=== PATIENT | male | born 1950 | race Two or more races ===

== ENCOUNTER 2023-02-28 11:09 | Inpatient (IN) | payer MEDICARE, MEDICAID ==
[~2023-02-28] VITALS: Ht 172.7 cm; Wt 95.6 kg
[~2023-02-28 11:09] MED LIST: ALBU0.084 IN; ALBUAER3 IN; AMLO1TAB22 PO; CHOL500046 PO; CLON-853 PO; FINA5TAB4 PO; FLUT110A IN; PANC3600 OR; PERCOT PO; PREG75CA PO; TEST1.62 TD; TIZA4CAP PO
[2023-02-28] MEDS ORDERED: SODIUM CHLORIDE 0.9% 1,000 ML IV ONE (11:30)
[2023-02-28] MEDS ORDERED: ONDANSETRON HCL 4 MG/2 ML VIAL IV ONE (11:30)
[2023-02-28] MEDS ORDERED: MORPHINE SULFATE 4 MG/ML SYR/VIAL IV ONE ×2 (11:30→17:00)
[2023-02-28 11:56] LABS: Basophils # (auto) 0.2 10 ^3/uL (0-0.2); Eosinophils # (auto) 0.3 10 ^3/uL (0-0.8); Eosinophils % (auto) 1.7 % (0.0-7.0); Hematocrit 32.3 % (41.0-53.0); Hemoglobin 10.8 g/dL (13.5-17.5); Lymphocytes # (auto) 1.5 10 ^3/uL (0.4-5.4); Mean Corpuscular Hemoglobin 27.1 pg (28.0-32.0); Mean Corpuscular Hgb Conc. 33.5 g/dL (32.0-36.0); Monocytes # (auto) 1.4 10 ^3/uL (0-1.3); Monocytes % (auto) 9.5 % (0.0-12.0); Neutrophils # (auto) 11.4 10 ^3/uL (1.6-8.6); Neutrophils % (auto) 77.8 % (37.0-80.0); Red Blood Cells 3.98 10^6/uL (4.5-5.90); White Blood Cell 14.7 10^3/uL (4.4-10.8)
[2023-02-28 12:12] LABS: INR 1.04 (0.9-1.15); Partial Thromboplastin Time 25.6 SEC (24.5-34.5); Prothrombin Time 10.9 sec (9.3-11.8)
[2023-02-28 12:18] LABS: Albumin 2.9 g/dL (3.4-5.0); Calcium 8.3 mg/dL (8.5-10.1)
[2023-02-28 12:22] LABS: BUN/Creatinine Ratio 19.3 (10.0-20.0); Bilirubin, Total 0.7 mg/dL (0.2-1.0)
[2023-02-28 12:40] VITALS: PULSE 91; RESP 10; O2SAT 94
[2023-02-28 13:45] LABS: Urine Bacteria NONE SEEN /hpf (None Seen); Urine Blood Negative /uL (Negative); Urine Clarity Clear (Clear); Urine Color Yellow (Yellow); Urine Protein, UAD TRACE (Negative); Urine Specific Gravity 1.021 (1.001-1.035); Urine Urobilinogen Normal (Negative); Urine WBC 11 /hpf (0 - 3)
[2023-02-28] MEDS ORDERED: CIPR-173 PO (13:50)
[2023-02-28] MEDS ORDERED: cefTRIAXone 1GM/50ML D5W 50 ML IV ONE (14:00)
[2023-02-28] MEDS ORDERED: ONDANSETRON HCL 4 MG/2 ML VIAL IM ONE (17:00)
[2023-02-28] MEDS ORDERED: ONDANSETRON HCL 4 MG/2 ML VIAL IV PRN (17:15)
[2023-02-28] MEDS ORDERED: DOCUSATE SOD 100 MG CAP PO PRN (17:15)
[2023-02-28] MEDS ORDERED: AMPICILLIN & SULBACTAM SODIUM 3 GM in SODIUM CHL 0.9% 100 ML IV SCH (17:15)
[2023-02-28 17:52] VITALS: BP 111/63; PULSE 86; RESP 18; TEMP 98.8; O2SAT 93
[2023-02-28] MEDS: SODIUM CHLORIDE 0.9% 1,000 ML IV SCH (18:33)
[2023-02-28 20:00] VITALS: PULSE 96; O2SAT 93
[2023-02-28] MEDS: MORPHINE SULFATE INJ 2 MG/ml SYRG IV PRN (20:34)
[2023-02-28] MEDS ORDERED: PANCREATIC ENZYMES 4200 UNIT CAP PO SCH (22:00)
[2023-02-28] MEDS ORDERED: CLONAZEPAM 1 MG PO SCH (22:00)
[2023-02-28] MEDS: clonazePAM 0.5 MG TAB PO SCH (22:31)
[2023-02-28] MEDS: PREGABALIN CAPSULE 75 MG CAP PO SCH (22:31)
[2023-02-28] MEDS: ceFAZolin 1GM/50ML 50 ML IV SCH (22:31)
[2023-02-28 23:37] VITALS: BP 148/78; PULSE 95; RESP 20; TEMP 98.4; O2SAT 95
[2023-03-01] VITALS (8 sets, daily range): BP systolic 110–135; BP diastolic 64–69; PULSE 80–91; RESP 17–20; TEMP 97.7–98.7; O2SAT 92–97
[2023-03-01] MEDS: SODIUM CHLORIDE 0.9% 1,000 ML IV SCH ×2 (01:42→18:15)
[2023-03-01] MEDS: MORPHINE SULFATE INJ 2 MG/ml SYRG IV PRN (01:47)
[2023-03-01 06:12] LABS: Basophils # (auto) 0.1 10 ^3/uL (0-0.2); Basophils % (auto) 0.9 % (0.0-2.0); Eosinophils # (auto) 0.3 10 ^3/uL (0-0.8); Eosinophils % (auto) 2.5 % (0.0-7.0); Hematocrit 29.6 % (41.0-53.0); Lymphocytes # (auto) 1.9 10 ^3/uL (0.4-5.4); Lymphocytes % (auto) 14.2 % (10.0-50.0); Mean Corpuscular Hemoglobin 27.5 pg (28.0-32.0); Mean Corpuscular Hgb Conc. 33.7 g/dL (32.0-36.0); Mean Corpuscular Volume 81.5 fL (80.0-100.0); Monocytes # (auto) 1.4 10 ^3/uL (0-1.3); Monocytes % (auto) 10.3 % (0.0-12.0); Neutrophils # (auto) 9.6 10 ^3/uL (1.6-8.6); Neutrophils % (auto) 72.1 % (37.0-80.0); Nucleated Red Blood Cells % 0.1 %; Red Blood Cells 3.63 10^6/uL (4.5-5.90); Red Cell Distribution Width 14.1 % (11.8-14.3); White Blood Cell 13.3 10^3/uL (4.4-10.8)
[2023-03-01] MEDS: PREGABALIN CAPSULE 75 MG CAP PO SCH ×3 (06:27→21:36)
[2023-03-01] MEDS: ceFAZolin 1GM/50ML 50 ML IV SCH ×3 (06:27→21:36)
[2023-03-01 06:41] LABS: Potassium 3.7 mmol/L (3.5-5.1)
[2023-03-01 06:51] LABS: Albumin 2.5 g/dL (3.4-5.0); BUN/Creatinine Ratio 16.3 (10.0-20.0); Bilirubin, Total 0.6 mg/dL (0.2-1.0); Total Protein 6.2 g/dL (6.4-8.2)
[2023-03-01] MEDS: FINASTERIDE 5 MG TAB PO SCH (09:35)
[2023-03-01] MEDS: clonazePAM 0.5 MG TAB PO SCH ×2 (09:35→21:36)
[2023-03-01] MEDS: amLODIPine BESYLATE 5 MG TAB PO SCH (09:35)
[2023-03-01] MEDS: PANCREATIC ENZYMES 4200 UNIT CAP PO SCH ×3 (09:36→20:01)
[2023-03-01] MEDS: oxyCODONE ER 20 MG TAB PO SCH ×2 (09:50→21:38)
[2023-03-01] MEDS: OXYCODONE W/ ACETAMINOPHEN 5/325MG TABLET PO PRN (15:37)
[2023-03-02] VITALS (12 sets, daily range): BP systolic 101–129; BP diastolic 61–71; PULSE 65–96; RESP 16–20; TEMP 97.9–99; O2SAT 92–100
[2023-03-02] MEDS: OXYCODONE W/ ACETAMINOPHEN 5/325MG TABLET PO PRN ×4 (00:19→20:28)
[2023-03-02] MEDS: SODIUM CHLORIDE 0.9% 1,000 ML IV SCH ×2 (02:35→19:15)
[2023-03-02] MEDS: PREGABALIN CAPSULE 75 MG CAP PO SCH ×3 (07:08→21:46)
[2023-03-02] MEDS: PANCREATIC ENZYMES 4200 UNIT CAP PO SCH ×3 (08:08→18:21)
[2023-03-02] MEDS: ceFAZolin 1GM/50ML 50 ML IV SCH ×3 (08:11→21:46)
[2023-03-02] MEDS: oxyCODONE ER 20 MG TAB PO SCH ×2 (10:29→23:05)
[2023-03-02] MEDS: clonazePAM 0.5 MG TAB PO SCH ×2 (10:30→21:47)
[2023-03-02] MEDS: amLODIPine BESYLATE 5 MG TAB PO SCH (10:30)
[2023-03-02] MEDS: FINASTERIDE 5 MG TAB PO SCH (10:30)
[2023-03-02] MEDS: levoFLOXacin 500MG 100 ML IV SCH (10:31)
[2023-03-02] MEDS: ALBUTEROL SULF 2.5 MG/0.5ML(0.5%) NEB SOLN NEB PRN (23:45)
[2023-03-03] VITALS (11 sets, daily range): BP systolic 101–128; BP diastolic 64–75; PULSE 79–96; RESP 16–22; TEMP 98–98.3; O2SAT 91–100
[2023-03-03] MEDS: OXYCODONE W/ ACETAMINOPHEN 5/325MG TABLET PO PRN ×2 (03:44→17:30)
[2023-03-03] MEDS: SODIUM CHLORIDE 0.9% 1,000 ML IV SCH ×3 (04:22→20:15)
[2023-03-03] MEDS: ceFAZolin 1GM/50ML 50 ML IV SCH (05:16)
[2023-03-03] MEDS: PREGABALIN CAPSULE 75 MG CAP PO SCH ×3 (05:17→21:31)
[2023-03-03] MEDS: PANCREATIC ENZYMES 4200 UNIT CAP PO SCH ×3 (08:00→17:31)
[2023-03-03] MEDS: levoFLOXacin 500MG 100 ML IV SCH (09:29)
[2023-03-03] MEDS: clonazePAM 0.5 MG TAB PO SCH ×2 (09:30→21:31)
[2023-03-03] MEDS: amLODIPine BESYLATE 5 MG TAB PO SCH (09:33)
[2023-03-03] MEDS: ALBUTEROL SULF 2.5 MG/0.5ML(0.5%) NEB SOLN NEB PRN (09:54)
[2023-03-03] MEDS: FINASTERIDE 5 MG TAB PO SCH (10:00)
[2023-03-03] MEDS ORDERED: FLUCONAZOLE 100 MG TAB PO ONE (10:15)
[2023-03-03] MEDS: oxyCODONE ER 20 MG TAB PO SCH ×2 (10:25→10:34)
[2023-03-03] MEDS ORDERED: LACTULOSE 20Gm/30ML SOLN PO ONE (10:30)
[2023-03-04] VITALS (12 sets, daily range): BP systolic 101–136; BP diastolic 55–70; PULSE 79–92; RESP 15–24; TEMP 97.2–98.4; O2SAT 90–98
[2023-03-04] MEDS: OXYCODONE W/ ACETAMINOPHEN 5/325MG TABLET PO PRN ×4 (00:17→20:06)
[2023-03-04] MEDS: SODIUM CHLORIDE 0.9% 1,000 ML IV SCH ×2 (04:35→12:55)
[2023-03-04] MEDS: PREGABALIN CAPSULE 75 MG CAP PO SCH ×3 (05:42→21:58)
[2023-03-04 07:16] LABS: Calcium 7.8 mg/dL (8.5-10.1); Potassium 4.4 mmol/L (3.5-5.1)
[2023-03-04] MEDS ORDERED: VENTOLIN INHALER IN PRN (07:45)
[2023-03-04] MEDS: PANCREATIC ENZYMES 4200 UNIT CAP PO SCH ×3 (08:00→18:00)
[2023-03-04 08:40] LABS: Basophils # (auto) 0.1 10 ^3/uL (0-0.2); Eosinophils # (auto) 0.3 10 ^3/uL (0-0.8); Eosinophils % (auto) 2.6 % (0.0-7.0); Hematocrit 30.9 % (41.0-53.0); Hemoglobin 10.4 g/dL (13.5-17.5); Lymphocytes # (auto) 1.4 10 ^3/uL (0.4-5.4); Lymphocytes % (auto) 12.8 % (10.0-50.0); Mean Corpuscular Hemoglobin 27.1 pg (28.0-32.0); Mean Corpuscular Hgb Conc. 33.5 g/dL (32.0-36.0); Mean Corpuscular Volume 80.8 fL (80.0-100.0); Monocytes # (auto) 0.9 10 ^3/uL (0-1.3); Monocytes % (auto) 8.2 % (0.0-12.0); Neutrophils # (auto) 8.2 10 ^3/uL (1.6-8.6); Neutrophils % (auto) 75.4 % (37.0-80.0); Red Blood Cells 3.83 10^6/uL (4.5-5.90); Red Cell Distribution Width 14.4 % (11.8-14.3); White Blood Cell 10.8 10^3/uL (4.4-10.8)
[2023-03-04] MEDS: levoFLOXacin 750MG 150 ML IV SCH (10:07)
[2023-03-04] MEDS: clonazePAM 0.5 MG TAB PO SCH ×2 (10:07→21:58)
[2023-03-04] MEDS: oxyCODONE ER 20 MG TAB PO SCH ×2 (10:08→21:58)
[2023-03-04] MEDS: FINASTERIDE 5 MG TAB PO SCH (10:09)
[2023-03-04] MEDS: amLODIPine BESYLATE 5 MG TAB PO SCH (10:09)
[2023-03-04] MEDS: FLUCONAZOLE 100 MG TAB PO SCH (10:12)
[2023-03-05] VITALS (7 sets, daily range): BP systolic 96–111; BP diastolic 71–98; PULSE 81–95; RESP 16–95; TEMP 97.6–98.6; O2SAT 93–96
[2023-03-05] MEDS: OXYCODONE W/ ACETAMINOPHEN 5/325MG TABLET PO PRN ×3 (03:05→17:47)
[2023-03-05] MEDS: PREGABALIN CAPSULE 75 MG CAP PO SCH ×2 (06:23→13:36)
[2023-03-05] MEDS: SODIUM CHLORIDE 0.9% 1,000 ML IV SCH ×2 (07:54→13:55)
[2023-03-05] MEDS: PANCREATIC ENZYMES 4200 UNIT CAP PO SCH ×3 (08:14→18:00)
[2023-03-05] MEDS: oxyCODONE ER 20 MG TAB PO SCH (09:22)
[2023-03-05] MEDS: FINASTERIDE 5 MG TAB PO SCH (09:22)
[2023-03-05] MEDS: clonazePAM 0.5 MG TAB PO SCH (09:22)
[2023-03-05] MEDS: levoFLOXacin 750MG 150 ML IV SCH (09:22)
[2023-03-05] MEDS: FLUCONAZOLE 100 MG TAB PO SCH (09:25)
[2023-03-05] MEDS: amLODIPine BESYLATE 5 MG TAB PO SCH (09:25)
[2023-03-05 13:32] LABS: COVID19 ANTIGEN SOFIA FIA NEGATIVE (NEGATIVE)
[2023-03-06] MEDS ORDERED: levoFLOXacin 500 MG TAB PO SCH (10:00)
== END 2023-03-05 18:35 | DRG 862 ==
LOC: EDBD 11:09 → ER 11:09 → TELE 17:03 → TELE-CENTR 21:27
PROVIDERS: ADMIT Family Medicine; ATTEND Family Medicine
PROC: 5A09357 Assistance with Respiratory Ventilation, Less than 24 Consecutive Hours, Continuous Positive Airway Pressure (ICD-10-PCS; principal; 2023-03-02)
PROC: 5A09357 Assistance with Respiratory Ventilation, Less than 24 Consecutive Hours, Continuous Positive Airway Pressure (ICD-10-PCS; 2023-03-03)
PROC: 0Y9C30Z Drainage of Right Upper Leg with Drainage Device, Percutaneous Approach (ICD-10-PCS; 2023-03-03)
DX: T81.40XA Infection following a procedure, unspecified, initial encounter (principal); A41.9 Sepsis, unspecified organism; L03.115 Cellulitis of right lower limb; N30.00 Acute cystitis without hematuria; E44.1 Mild protein-calorie malnutrition; J44.1 Chronic obstructive pulmonary disease with (acute) exacerbation; T81.44XA Sepsis following a procedure, initial encounter; Z20.822 Contact with and (suspected) exposure to COVID-19; Z96.641 Presence of right artificial hip joint; S70.01XA Contusion of right hip, initial encounter; D50.0 Iron deficiency anemia secondary to blood loss (chronic); I10 Essential (primary) hypertension; B96.5 Pseudomonas (aeruginosa) (mallei) (pseudomallei) as the cause of diseases classified elsewhere; G47.30 Sleep apnea, unspecified; R56.9 Unspecified convulsions; Z96.653 Presence of artificial knee joint, bilateral; X58.XXXA Exposure to other specified factors, initial encounter; B18.2 Chronic viral hepatitis C; N40.0 Benign prostatic hyperplasia without lower urinary tract symptoms; Z86.73 Personal history of transient ischemic attack (TIA), and cerebral infarction without residual deficits; Z87.891 Personal history of nicotine dependence; Z90.49 Acquired absence of other specified parts of digestive tract; Z68.30 Body mass index [BMI] 30.0-30.9, adult; Y93.89 Activity, other specified; Y92.89 Other specified places as the place of occurrence of the external cause; Y99.8 Other external cause status; Y83.8 Other surgical procedures as the cause of abnormal reaction of the patient, or of later complication, without mention of misadventure at the time of the procedure
CPT/HCPCS: 36415; 71045; 73700; 75989; 76881; 80048; 80053; 81001; 83605; 85025; 85610; 85730; 87040; 87077; 87081; 87086; 87088; 87186; 87205; 87426; 93005; 94640; 94660; C1729; G0378; J0690; J0696; J1956; J2405